=== PATIENT | male | born 1990 | race Two or more races ===

== ENCOUNTER 2025-04-11 10:56 | Inpatient (IN) | payer MEDICAID ==
[~2025-04-11] VITALS: Ht 162.6 cm; Wt 80.7 kg
[~2025-04-11 10:56] MED LIST: ACYC200C22 PO; PRED20TA2 PO
--- NOTE | 2025-04-11 12:39 | ED.PDOC ---
Back pain HPI HPI Comments 34 y/o M, presents to the ED for CC of back pain. Patient states, he has been experiencing bilateral lower back pain with associated left-leg pain sudden onset, x4days ago. Patient reports, regular heavy lifting d/t work; denies any trauma or lifting out of the ordinary. Patient relays, to have further associated symptoms of numbness and tingling. At this time patient c/o 10/10 back pain worsening with ambulation. Patient does endorses, taking x2 500mg Tylenol capsules with no relief of symptoms. No other symptoms or modifying factors are present at this time. Chief Complaint: Back Pain Time Seen by MD: 12:05 Primary Care Provider: [place] Reviewed Notes: Nurses Notes, Medications, Allergies Allergies: Coded Allergies: NO KNOWN ALLERGIES (Unverified , 03/27/23) Home Meds Active Scripts Prednisone (Prednisone) 20 Mg Tab, 60 MG PO DAILY for 10 Days, #30 MG Prov:BROOKLYN BELLA DO 03/27/23 Acyclovir (Acyclovir) 200 Mg Cap, 400 MG PO TID for 10 Days, #60 TAB Prov:BROOKLYN BELLA DO 03/27/23 Information Source: Patient Mode of Arrival: Ambulatory Timing: Days Duration: Since onset Location of Back pain: (B) Lumbar Severity: Moderate Prehospital treatment: None Onset: Spontaneous History of: None Associated signs and symptoms: None Past Medical History PAST MEDICAL HISTORY: Denies Surgical History: Denies all surgeries Family History Family History: Unknown Social History Smoker: Non-Smoker Alcohol: Denies ETOH Use Drugs: Denies Drug Use Lives In: Home Constitutional: denies: chills, diaphoresis, fatigue, fever, malaise, sweats, weakness, others EENTM: denies: blurred vision, double vision, ear bleeding, ear discharge, ear drainage, ear pain, ear ringing, eye pain, eye redness, hearing loss, mouth pain, mouth swelling, nasal discharge, nose bleeding, nose congestion, nose pain, photophobia, tearing, throat pain, throat swelling, voice changes, others Respiratory: denies: cough, hemoptysis, orthopnea, SOB at rest, shortness of breath, SOB with excertion, stridor, wheezing, others Cardiovascular: denies: chest pain, dizzy spells, diaphoresis, Dyspnea on exer tion, edema, irregular heart beat, left arm pain, lightheadedness, palpitations, PND, syncope, others Gastrointestinal: denies: abdomen distended, abdominal pain, blood streaked bowels, constipated, diarrhea, dysphagia, difficulty swallowing, hematemesis, melena, nausea, poor appetite, poor fluid intake, rectal bleeding, rectal pain, vomiting, others Genitourinary: denies: burning, dysuria, flank pain, frequency, hematuria, incontinence, penile discharge, penile sore, pain, testicle pain, testicle swelling, urgency, others Neurological: denies: dizziness, fainting, headache, left sided numbness, left sided weakness, numbness, paresthesia, pre-existing deficit, right sided numbness, right sided weakness, seizure, speech problems, tingling, tremors, weakness, others Musculoskeletal: reports: back pain; denies: gout, joint pain, joint swelling, muscle pain, muscle stiffness, neck pain, others Integumetry: denies: bruises, change in color, change in hair/nails, dryness, laceration, lesions, lumps, rash, wounds, others Allergic/Immunocompromised: denies: Difficulty Healing, Frequent Infections, Hives, Itching, others Hematologic/Lymphatic: denies: anemia, blood clots, easy bleeding, easy bruising, swollen glands, others Endocrine: denies: excessive hunger, excessive sweating, excessive thirst, excessive urination, flushing, intolerance to cold, intolerance to heat, unexplained weight gain, unexplained weight loss, others Psychiatric: denies: anxiety, bipolar disorder, depression, hopeless, panic disorder, schizophrenia, sleepless, suicidal, others All Other Systems: Reviewed and Negative Physical Exam General Appearance: No Apparent Distress, Normal HEENT: Normal ENT Inspection, Pharynx Normal Neck: Full Range of Motion, Non-Tender, Normal, Normal Inspection Respiratory: Chest Non-Tender, Lungs Clear, No Accessory Muscle Use, No Respiratory Distress, Normal Breath Sounds Cardiovascular: No Edema, No Murmur, No Gallop, Normal Peripheral Pulses, Regular Rate/Rhythm Breast Exam: Deferred Gastrointestinal: No Organomegaly, Non Tender, No Pulsatile Mass, Normal Bowel Sounds, Soft Genitalia: Deferred Pelvic: Deferred Rectal: Deferred Extremities: No calf tenderness, Normal capillary refill, Normal inspection, Normal range of motion, Non-tender, No pedal edema Musculoskeletal : Location: Left Extremity Location: Back Apperance: Tenderness Neurologic: Alert, health diagnostics teacher II-XII nml as Tested, No Motor Deficits, Normal Affect, Normal Mood, No Sensory Deficits Cerebellar Function: Normal Reflexes: Normal Skin: Dry, Normal Color, Warm Lymphatic: No Adenopathy Was a procedure done? Was a procedure done?: No Back Pain Differential Dx Differential Diagnosis: Fracture, Musculoskeletal Pain X-Ray, Labs, Meds, VS Vital Signs Date Time Temp Pulse Resp B/P (MAP) Pulse Ox O2 Delivery O2 Flow Rate FiO2 04/11/25 15:17 98.4 04/11/25 13:45 74 18 98 Room Air 04/11/25 13:45 97.6 74 18 126/78 (94) 98 97.6 04/11/25 11:02 97.1 60 16 132/72 98 97.1 Current Medications Medications (Trade) Dose Ordered Sig/Dominik Route Start Time Stop Time Status Last Admin Acetaminophen (Tylenol Tablet) 650 mg ONCE ONCE PO 04/11/25 12:30 04/11/25 12:31 DC 04/11/25 13:38 Ketorolac Tromethamine (Toradol Injection) 15 mg ONCE ONCE IM 04/11/25 12:30 04/11/25 12:31 DC 04/11/25 13:37 Cyclobenzaprine HCl (Flexeril Tablet) 10 mg ONCE ONCE PO 04/11/25 12:30 04/11/25 12:31 DC 04/11/25 13:37 [place] [address] Ph: [phone] DIAGNOSTIC IMAGING Diagnostic Imaging Report : [id number] Signed PATIENT: DELFINA GÓMEZ ACCT: [id number] UNIT: [id number] : 1990 LOC: ER ROOM / BED: / AGE / SEX: 34 / M ADM STATUS: REG ER SERVICE 16 ORDERING PHYSICIAN: EM GARCIA MD PROCEDURE(s): LUMB2 - LUMBAR SPINE 3 VIEW REASON: lower back pain ORDER NUMBER(s): [id number], ACCESSION NUMBER(s): [id number] CLINICAL INDICATION: lower back pain TECHNIQUE: 3 radiographic views of the lumbar spine were obtained. COMPARISON: None FINDINGS/IMPRESSION: No compressed vertebra. No spondylolisthesis. ATED BY: LAUREN LARA Jr., DO DICTATED DATE/TIME: 04/11/251257 SIGNED BY: LAUREN LARA Jr., SIGNED DATE/TIME: 04/11/251257 CC: Time of 1ST Reevaluation: 12:35 Reevaluation 1ST: Unchanged Patient Education/Counseling: Diagnosis, Treatment Family Education/Counseling: Diagnosis, Treatment SEPSIS Sepsis Screen Date sepsis recognized/suspect: Apr 11, 2025 Time Sepsis recognized/suspect: 1106 Recent Procedure: No On Antibiotic Therapy: No Respiratory Rate >20: No Heart Rate >90: No Temp<36 C (96.8 F) or >38.3 C: No SBP <90 or MAP <65 mmHG: No New Acute Mental Status Change: No Is the patient on CPAP, BIPAP,: No Physician Orders Lumbar Spine 3 View (04/11/25 12:17) Vital Signs Date Time Temp Pulse Resp B/P (MAP) Pulse Ox O2 Delivery O2 Flow Rate FiO2 04/11/25 15:17 98.4 04/11/25 13:45 74 18 98 Room Air 04/11/25 13:45 97.6 74 18 126/78 (94) 98 97.6 04/11/25 11:02 97.1 60 16 132/72 98 97.1 Medications Medications Dose Ordered Sig/Dominik Route Start Time Stop Time Status Last Admin Dose Admin Acetaminophen 650 mg ONCE ONCE PO 04/11/25 12:30 04/11/25 12:31 DC 04/11/25 13:38 Cyclobenzaprine HCl 10 mg ONCE ONCE PO 04/11/25 12:30 04/11/25 12:31 DC 04/11/25 13:37 Ketorolac Tromethamine 15 mg ONCE ONCE IM 04/11/25 12:30 04/11/25 12:31 DC 04/11/25 13:37 Departure 1 Departure Time of Disposition: 17:46 (Patient with lower back pain that radiates down his legs with the associated numbness and tingling in both legs. Patient went difficulty ambulating. We will admit patient for advanced imaging and expert consultation) Impression: Primary Impression: Lower back pain Additional Impression: Lower extremity weakness Disposition: 09 ADMITTED INPATIENT Admit to: Med Surg Condition: Guarded Critical Care Note Critical Care Time?: No Stability Stability form required: No Heart Score Heart Score: Heart Score Response (Comments) Value History N/A 0 EKG N/A 0 Age N/A 0 Risk Factors N/A 0 Troponin N/A 0 Total 0 I personally scribed for EM GARCIA MD ([email or web address]) on 04/11/25 at 12:39. Electronically submitted by Rajani Leong ([email or web address]). I personally scribed for EM GARCIA MD ([email or web address]) on 04/11/25 at 13:22. Electronically submitted by Rajani Leong ([email or web address]). EM GARCIA MD Apr 11, 2025 12:39
--- NOTE | 2025-04-11 13:00 | DVH ---
CLINICAL INDICATION: lower back pain TECHNIQUE: 3 radiographic views of the lumbar spine were obtained. COMPARISON: None FINDINGS/IMPRESSION: No compressed vertebra. No spondylolisthesis.
[2025-04-11] MEDS: CYCLOBENZAPRINE HCL 10 MG TAB PO ONE (13:37)
[2025-04-11] MEDS: KETOROLAC TROMETH 30 MG/ML 1ML VIAL IM ONE (13:37)
[2025-04-11] MEDS: ACETAMINOPHEN 325 MG TAB PO ONE (13:38)
[2025-04-11] MEDS ORDERED: MORPHINE SULFATE INJ 2 MG/ml SYRG IV PRN (22:30)
--- NOTE | 2025-04-11 22:44 | DVHHPRES ---
History of Present Illness Resident Creating Document: RAMSES BRAND RESIDENT History of Present Illness The patient is a 33-year-old male with past medical history of [place] palsy, came to the hospital with chief complaints of lower back pain radiating to bilateral hips but more on the left side which is radiating to the left leg since 4 days and today got worse. Patient reports the pain is 10/10 in intensity, constant, shock-like increased with walking and sitting up straight , standing , and defecation. Due to severe pain, the patient is not able to walk. 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 Patient also states 2 days ago he had flu-like symptoms. currently denies fever, chills, constipation, urinary incontinence, dysuria, hematuria, stool incontinence. Past surgical history: Appendectomy Family history: Reviewed, noncontributory Personal history: Smokes 1 cigarette per week, drinks occasionally, denies any drug use. Lives with: Family PCP: Does not have PCP Medications: Denies any home medications Allergies: Denies any allergies Patient seen and examined at the bedside. Patient is still complaining of severe low-back pain. Review of Systems Constitutional: No: Fever, Chills, Sweats, Weakness, Malaise, Other Eyes: No: Pain, Vision change, Conjunctivae inflammation, Eyelid inflammation, Other, Redness ENT: No: Ear pain, Ear discharge, Nose pain, Nose discharge, Nose congestion, Mouth pain, Mouth swelling, Throat pain, Throat swelling, Other Respiratory: No: Cough, Dry, Shortness of breath, SOB with excertion, Wheezing, Hemoptysis, Pleuritic Pain, Sputum, Wheezing, Other Cardiovascular: No: Chest Pain, Palpitations, Orthopnea, Paroxysmal Noc. Dyspnea, Edema, Lt Headedness, Other Gastrointestinal: No: Nausea, Vomiting, Abdominal Pain, Diarrhea, Constipation, Melena, Hematochezia, Other Genitourinary: No Dysuria, No Frequency, No Incontinence, No Hematuria, No Retention, No Other Musculoskeletal: back pain, leg pain; No: other, neck pain, shoulder pain, arm pain, hand pain, foot pain Skin: No: Rash, Lesions, Jaundice, Bruising, Other Neurological: No: Weakness, Numbness, Incoordination, Change in speech, Confusion, Seizures, Other Allergies: Coded Allergies: NO KNOWN ALLERGIES (Unverified , 03/27/23) Exam Vital Signs Vital Signs Date Time Temp Pulse Resp B/P (MAP) Pulse Ox O2 Delivery O2 Flow Rate FiO2 04/11/25 20:25 97.7 53 16 135/76 (95) 97 97.7 04/11/25 13:45 Room Air Exam General: Patient alert and oriented in person, place and time. Patient following commands. severe distress HEENT: Normocephalic, atraumatic, moist mucous membranes Respiratory/pulmonary: Clear lungs bilaterally, vesicular murmurs present in almost all lung hernández, no associated crackles or wheezes. Cardiovascular: Normal heart sounds S1 and S2 with no associated murmurs Abdomen: Abdomen nondistended, there is no pain to palpation in any of the abdominal quadrants, no palpable masses. Extremities: Severe lower back tenderness upon palpation, radiating to Left hip and left leg Peripheral Pulses: 3+ Radial (R). 3+ Radial (L). 3+ Dorsalis pedis (R). 3+ Dorsalis pedis(L) Skin: No rashes or pruritus, there is no sacral edema present at this time. Neurological: Intact cranial nerves with no focal neurologic deficits SEPSIS Sepsis Screen Date sepsis recognized/suspect: Apr 11, 2025 Time Sepsis recognized/suspect: 6 Recent Procedure: No On Antibiotic Therapy: No Respiratory Rate >20: No Heart Rate >90: No Temp<36 C (96.8 F) or >38.3 C: No SBP <90 or MAP <65 mmHG: No New Acute Mental Status Change: No Is the patient on CPAP, BIPAP,: No Physician Orders Admit (04/11/25 22:20) Code Status (04/11/25 22:20) Complete Blood Count (04/12/25 04:00) Comprehensive Metabolic Panel (04/12/25 04:00) Pt Request For Service (04/11/25 22:20) Stat Ekg For Chest Pain (04/11/25 22:20) Notify Of Changes From Base (04/11/25 22:20) Emergency Dysrhythmia Protocol (04/11/25 22:20) Rhythm Strips Once Every Shift (04/11/25 22:20) Complete Blood Count (04/11/25 22:20) Comprehensive Metabolic Panel (04/11/25 22:20) Urinalysis (04/11/25 22:20) Drug Screen (04/11/25 22:20) Acetaminophen Tablet (Tylenol Tablet) (04/12/25 00:00) Ketorolac Injection (Toradol Injection) (04/12/25 00:00) Morphine Sulfate Injection (04/11/25 22:30) Vital Signs Date Time Temp Pulse Resp B/P (MAP) Pulse Ox O2 Delivery O2 Flow Rate FiO2 04/11/25 20:25 97.7 53 16 135/76 (95) 97 97.7 04/11/25 15:17 98.4 Medications Medications Dose Ordered Sig/Dominik Route Start Time Stop Time Status Last Admin Dose Admin Acetaminophen 650 mg ONCE ONCE PO 04/11/25 12:30 04/11/25 12:31 DC 04/11/25 13:38 650 MG Cyclobenzaprine HCl 10 mg ONCE ONCE PO 04/11/25 12:30 04/11/25 12:31 DC 04/11/25 13:37 10 MG Ketorolac Tromethamine 15 mg ONCE ONCE IM 04/11/25 12:30 04/11/25 12:31 DC 04/11/25 13:37 15 MG Assessment/Plan Assessment/Plan Intractable lower back pain Possible traumatic back injury - patient unable to walk due to severe pain - lumbar Spine x-ray: No compressed vertebra. No spondylolisthesis. - IV pain management Obesity Regular diet PPI prophylaxis: Not indicated DVT prophylaxis: ambulatory Goals of care addressed with the patient for more than 31 minutes: Full code status Case discussed with , patient and nurse Plan discussed with: Patient My Orders Orders - RAMSES BRAND RESIDENT Procedure Category Date Status Time Admit ADMIT 04/11/25 Transmitted 22:20 Code Status CODE 04/11/25 Transmitted 22:20 Complete Blood Count LAB 04/12/25 Verified 04:00 Comprehensive LAB 04/12/25 Verified Metabolic Panel 04:00 Pt Request For Service PT 04/11/25 Logged 22:20 Stat Ekg For Chest MISAEL 04/11/25 In Process Pain 22:20 Notify Of Changes MISAEL 04/11/25 In Process From Base 22:20 Emergency Dysrhythmia MISAEL 04/11/25 In Process Protocol 22:20 Rhythm Strips Once MISAEL 04/11/25 In Process Every Shift 22:20 Complete Blood Count LAB 04/11/25 Logged 22:20 Comprehensive LAB 04/11/25 Logged Metabolic Panel 22:20 Urinalysis LAB 04/11/25 Logged 22:20 Drug Screen LAB 04/11/25 Logged 22:20 Acetaminophen Tablet PHA 04/12/25 In Process (Tylenol Tablet) 00:00 Ketorolac Injection PHA 04/12/25 In Process (Toradol Injection) 00:00 Morphine Sulfate PHA 04/11/25 In Process Injection 22:30 Visit Coding STANDARD RES Billing Provider: BRITTANY CERVANTES MD Date of Service if different f: Apr 11, 2025 Common Visit Codes: 69619-DFGIABI INP/OBS CARE (HIGH) Secondary Visit Codes: 11136-GXIIGXBZ CARE PLAN 30 MINUTES RAMSES BRAND RESIDENT Apr 11, 2025 22:44
[2025-04-11 23:12] LABS: Hematocrit 47.7 % (41.0-53.0); Hemoglobin 16.0 g/dL (13.5-17.5); Mean Corpuscular Hemoglobin 28.3 pg (28.0-32.0); Mean Corpuscular Volume 84.3 fL (80.0-100.0); Nucleated Red Blood Cells % 0.1 %
[2025-04-11] MEDS: KETOROLAC TROMETH 30 MG/ML 1ML VIAL IV SCH (23:26)
[2025-04-11] MEDS: ACETAMINOPHEN 325 MG TAB PO SCH (23:27)
[2025-04-11 23:29] LABS: Alanine Aminotransferase 31 U/L (7-40); Albumin 4.7 g/dL (3.2-4.8); Alkaline Phosphatase 90 U/L (46-116); Anion Gap 9 (5-15); BUN/Creatinine Ratio 27.9 (10.0-20.0); Calcium 9.1 mg/dL (8.7-10.4); Carbon Dioxide 26 mmol/L (20-31); Chloride 106 mmol/L (98-107); Glucose 85 mg/dL (74-106); Potassium 3.7 mmol/L (3.5-5.1); Sodium 141 mmol/L (136-145); Total Protein 7.0 g/dL (5.7-8.2)
[2025-04-11 23:30] LABS: Bilirubin, Total 0.4 mg/dL (0.2-1.0)
[2025-04-11 23:34] LABS: Blood Urea Nitrogen 24 mg/dL (9-23)
[2025-04-11 23:52] VITALS: BP 129/71; PULSE 47; RESP 17; TEMP 98.1; O2SAT 100
[2025-04-12 02:15] LABS: Urine Protein, UAD TRACE (Negative)
[2025-04-12 02:18] LABS: Amphetamine Screen, Urine Neg (NEGATIVE); Barbiturate Scree,Urine Neg (NEGATIVE); Benzodiazephine Screen, Urine Neg (NEGATIVE); Cannabinoid Screen, Urine Neg (NEGATIVE); Cocaine Screen, Urine Neg (NEGATIVE); Opiate Scree,Urine Neg (NEGATIVE); Phencyclidine Screen, Urine Neg (NEGATIVE)
[2025-04-12 04:00] VITALS: BP 129/71; PULSE 50; RESP 17; O2SAT 96
[2025-04-12 05:56] LABS: Hematocrit 48.4 % (41.0-53.0); Hemoglobin 16.4 g/dL (13.5-17.5); Mean Corpuscular Hemoglobin 28.5 pg (28.0-32.0); Mean Corpuscular Volume 83.8 fL (80.0-100.0); Nucleated Red Blood Cells % 0.0 %
[2025-04-12 06:00] VITALS: BP 112/75; PULSE 51; RESP 18; TEMP 97.7; O2SAT 100
[2025-04-12 06:22] LABS: Alanine Aminotransferase 29 U/L (7-40); Albumin 4.4 g/dL (3.2-4.8); Alkaline Phosphatase 89 U/L (46-116); Anion Gap 9 (5-15); BUN/Creatinine Ratio 23.9 (10.0-20.0); Blood Urea Nitrogen 21 mg/dL (9-23); Calcium 9.2 mg/dL (8.7-10.4); Carbon Dioxide 26 mmol/L (20-31); Chloride 106 mmol/L (98-107); Glucose 100 mg/dL (74-106); Potassium 4.7 mmol/L (3.5-5.1); Sodium 141 mmol/L (136-145); Total Protein 6.9 g/dL (5.7-8.2)
[2025-04-12 06:23] LABS: Bilirubin, Total 0.4 mg/dL (0.2-1.0)
[2025-04-12 09:00] VITALS: BP 123/70; PULSE 52; RESP 17; TEMP 97.9; O2SAT 97
[2025-04-12] MEDS: PANTOPRAZOLE 40 MG TAB PO ONE (10:01)
[2025-04-12] MEDS: BACLOFEN 10 MG TAB PO SCH (10:01)
[2025-04-12 12:55] LABS: COVID19 ANTIGEN SOFIA FIA NEGATIVE (NEGATIVE)
[2025-04-12 13:00] VITALS: BP 124/79; PULSE 54; TEMP 97.8; O2SAT 99
[2025-04-12] MEDS ORDERED: PANT40T PO (13:10)
[2025-04-12] MEDS ORDERED: BACL10TA PO (13:10)
[2025-04-12] MEDS ORDERED: IBUP-1453 PO (13:10)
[2025-04-12] MEDS ORDERED: PANTOPRAZOLE 40 MG TAB PO ONE (13:15)
[2025-04-12] MEDS ORDERED: ERGO1CAP23 PO (14:02)
[2025-04-12] MEDS: methylPREDNISolone SOD SUCC 40 MG/ML VL IV ONE (14:15)
[2025-04-12] MEDS: ERGOCALCIFEROL 50,000 UNIT(1.25MG) CAP PO SCH (14:15)
[2025-04-12] MEDS: CYANOCOBALAMIN (B-12) 1000 MCG/1 ML VIAL IM ONE (14:31)
--- NOTE | 2025-04-12 14:41 | DVHDSRES ---
Discharge Summary Date of Admission Resident Creating Document: MELODIE KNOX RESIDENT Apr 11, 2025 at 22:20 Date of Discharge: Apr 12, 2025 Admitting Diagnosis Intractable low back pain Labs/Diagnostic Data: Laboratory Results Test 04/12/25 10:41 04/12/25 05:16 04/11/25 23:32 Influenza Type A Antigen Negative (Negative) Influenza Type B Antigen Negative (Negative) SARS-CoV-2 Antigen (Rapid) Negative (NEGATIVE) White Blood Count 6.0 10^3/uL (4.4-10.8) Red Blood Count 5.77 10^6/uL (4.5-5.90) Hemoglobin 16.4 g/dL (13.5-17.5) Hematocrit 48.4 % (41.0-53.0) Mean Corpuscular Volume 83.8 fL (80.0-100.0) Mean Corpuscular Hemoglobin 28.5 pg (28.0-32.0) Mean Corpuscular Hemoglobin Concent 33.9 g/dL (32.0-36.0) Red Cell Distribution Width 13.6 % (11.8-14.3) Platelet Count 209 10^3/uL (140-450) Mean Platelet Volume 8.6 fL (6.9-10.8) Neutrophils (%) (Auto) 53.7 % (37.0-80.0) Lymphocytes (%) (Auto) 36.6 % (10.0-50.0) Monocytes (%) (Auto) 6.2 % (0.0-12.0) Eosinophils (%) (Auto) 3.2 % (0.0-7.0) Basophils (%) (Auto) 0.3 % (0.0-2.0) Neutrophils # (Auto) 3.2 10 ^3/uL (1.6-8.6) Lymphocytes # (Auto) 2.2 10 ^3/uL (0.4-5.4) Monocytes # (Auto) 0.4 10 ^3/uL (0-1.3) Eosinophils # (Auto) 0.2 10 ^3/uL (0-0.8) Basophils # (Auto) 0 10 ^3/uL (0-0.2) Nucleated Red Blood Cells 0.0 % Erythrocyte Sedimentation Rate 1 mm/hr (0-20) Sodium Level 141 mmol/L (136-145) Potassium Level 4.7 mmol/L (3.5-5.1) Chloride Level 106 mmol/L (98-107) Carbon Dioxide Level 26 mmol/L (20-31) Anion Gap 9 (5-15) Blood Urea Nitrogen 21 mg/dL (9-23) Creatinine 0.88 mg/dL (0.700-1.30) Glomerular Filtration Rate Calc 116 mL/min (>90) BUN/Creatinine Ratio 23.9 (10.0-20.0) Serum Glucose 100 mg/dL (74-106) Hemoglobin A1c 5.4 % A1C (<5.7) Calcium Level 9.2 mg/dL (8.7-10.4) Magnesium Level 2.0 mg/dL (1.6-2.6) Total Bilirubin 0.4 mg/dL (0.2-1.0) Aspartate Amino Transferase (AST) 20 U/L (13-40) Alanine Aminotransferase (ALT) 29 U/L (7-40) Alkaline Phosphatase 89 U/L (46-116) C-Reactive Protein High Sensitivity 0.03 mg/dL (<1.0) Total Protein 6.9 g/dL (5.7-8.2) Albumin 4.4 g/dL (3.2-4.8) Vitamin B12 Level 245 pg/mL (211-911) Vitamin D 25-Hydroxy 28.4 ng/mL (30.0-100) Folic Acid 19.39 ng/mL (>5.38) Thyroid Stimulating Hormone (TSH) 1.88 uIU/mL (0.55-4.78) Urine Color Yellow (Yellow) Urine Clarity Clear (Clear) Urine pH 5.5 (5.0-9.0) Urine Specific [place] 1.044 (1.001-1.035) Urine Protein Trace (Negative) Urine Ketones Trace (Negative) Urine Blood Negative /uL (Negative) Urine Nitrite Negative (Negative) Urine Bilirubin Negative (Negative) Urine Urobilinogen Normal mg/dL (Negative) Urine Leukocyte Esterase Negative /uL (Negative) Urine RBC 2 /hpf (0 - 3) Urine Microscopic WBC < 1 /HPF (0-3) Urine Squamous Epithelial Cells None seen /hpf (<5) Urine Calcium Oxalate Crystals Mod (None Seen) Urine Bacteria None seen /hpf (None Seen) Urine Mucus Few (None Seen) Urine Glucose Normal mg/dL (Normal) Urine Opiates Screen Neg (NEGATIVE) Urine Fentanyl Screen Neg (NEGATIVE) Urine Barbiturates Screen Neg (NEGATIVE) Urine Phencyclidine Screen Neg (NEGATIVE) Urine Amphetamines Screen Neg (NEGATIVE) Urine Benzodiazepines Screen Neg (NEGATIVE) Urine Cocaine Screen Neg (NEGATIVE) Urine Cannabinoids Screen Neg (NEGATIVE) Other Laboratory Tests 04/12/25 05:16 Brief Hx & Hospital Course: The patient is a 33-year-old male with past medical history of [place] palsy, came to the hospital with chief complaints of lower back pain radiating to bilateral hips but more on the left side which is radiating to the left leg since 4 days and today got worse. Patient reports the pain is 10/10 in intensity, constant, shock-like increased with walking and sitting up straight , standing , and defecation. Due to severe pain, the patient is not able to walk. 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 Patient also states 2 days ago he had flu-like symptoms. currently denies fever, chills, constipation, urinary incontinence, dysuria, hematuria, stool incontinence. Hospital [id number] lumbar spine was negative for vertebral fracture or spondylolisthesis. Patient was treated conservatively with pain medication and muscle relaxants. Patient's symptoms improved. Patient was seen by Physical therapy. Patient was discharged with ibuprofen, baclofen and pantoprazole. Patient was advised to follow up at [facility] clinic/PCP. Patient was hemodynamically stable on discharge. All questions answered. General: Patient alert and oriented in person, place and time. Patient following commands. severe distress HEENT: Normocephalic, atraumatic, moist mucous membranes Respiratory/pulmonary: Clear lungs bilaterally, vesicular murmurs present in almost all lung hernández, no associated crackles or wheezes. Cardiovascular: Normal heart sounds S1 and S2 with no associated murmurs Abdomen: Abdomen nondistended, there is no pain to palpation in any of the abdominal quadrants, no palpable masses. Extremities: No leg edema Peripheral Pulses: 3+ Radial (R). 3+ Radial (L). 3+ Dorsalis pedis (R). 3+ Dorsalis pedis(L) Skin: No rashes or pruritus, there is no sacral edema present at this time. Neurological: Intact cranial nerves with no focal neurologic deficits Assessment Intractable low back pain likely due to sciatica Back pain possibly due to muscle sprain Ruled out acute fracture/spondylolisthesis Asymptomatic sinus bradycardia Plan Ibuprofen PRN as prescribed Baclofen as prescribed Pantoprazole as prescribed Patient was counseled about weight lifting mechanism Follow up at [place] clinic/PCP Operations or Procedures [address] [address] Ph: [phone] DIAGNOSTIC IMAGING Diagnostic Imaging Report : [id number] Signed PATIENT: DELFINA GÓMEZ ACCT: [id number] UNIT: [id number] : 1990 LOC: ER ROOM / BED: / AGE / SEX: 34 / M ADM STATUS: REG ER SERVICE 16 ORDERING PHYSICIAN: EM GARCIA MD PROCEDURE(s): LUMB2 - LUMBAR SPINE 3 VIEW REASON: lower back pain ORDER NUMBER(s): [id number], ACCESSION NUMBER(s): [id number] CLINICAL INDICATION: lower back pain TECHNIQUE: 3 radiographic views of the lumbar spine were obtained. COMPARISON: None FINDINGS/IMPRESSION: No compressed vertebra. No spondylolisthesis. ATED BY: LAUREN LARA Jr., DO DICTATED DATE/TIME: 04/11/251257 SIGNED BY: LAUREN LARA Jr., DO SIGNED DATE/TIME: 04/11/251257 CC: Condition at Discharge: Stable Final Diagnosis/Problems List Intractable low back pain likely due to sciatica Back pain possibly due to muscle sprain Ruled out acute fracture/spondylolisthesis Asymptomatic sinus bradycardia Vitamin-D deficiency Discharge Disposition: Home Discharge Instruct/Medications Diet: Regular Activity: See Comment Activity comment: caution on how to do weight lifting Follow Up/Referral: [facility] Medications: as above Scheduled Acyclovir (Acyclovir), 400 MG PO TID Baclofen (Baclofen), 10 MG PO TID Ergocalciferol (Vitamin D 31669 Unit), 50,000 UNIT PO QWEEKLY Ibuprofen (Ibuprofen), 1 TAB PO Q6HPRN Pantoprazole Sodium Sesquihydr (Pantoprazole Sodium), 40 MG PO DAILY Prednisone (Prednisone), 60 MG PO DAILY Discharge Statement: "Patient was advised to return to the ER or call 911 if any headaches, dizziness, shortness of breath, chest pain, abdominal pain, bleeding, fevers, or worsening of medical condition. Patient was counseled about treatment plan, medications, possible side effects, patientverbalized understanding. All questions were answered to the best of my ability. This discharge took greater then 30 minutes in planning, reviewing documentation, counseling the patient, and discussing with other team members." ASSESSMENT ASSESSMENT Assessment Low back pain possibly due to Sciatica Visit Coding STANDARD RES Billing Provider: DAMI COX MD Date of Service if different f: Apr 12, 2025 Common Visit Codes: 82775-UXD/OBS DISCH DAY >30min MELODIE KNOX RESIDENT Apr 12, 2025 14:41
[2025-04-13] MEDS ORDERED: PANTOPRAZOLE 40 MG TAB PO SCH (06:00)
== END 2025-04-12 14:30 | disposition home or self-care (01) | DRG 347 ==
LOC: ER 10:56 → OVERFLOW 22:20 → UNDODEPER 04-12 04:02
PROVIDERS: ADMIT Student in an Organized Health Care Education/Training Program; ATTEND Student in an Organized Health Care Education/Training Program
DX: M54.32 Sciatica, left side (principal); E66.9 Obesity, unspecified; S39.012A Strain of muscle, fascia and tendon of lower back, initial encounter; F17.210 Nicotine dependence, cigarettes, uncomplicated; Z20.822 Contact with and (suspected) exposure to COVID-19; M54.31 Sciatica, right side; Z79.899 Other long term (current) drug therapy; Z68.30 Body mass index [BMI] 30.0-30.9, adult; X58.XXXA Exposure to other specified factors, initial encounter; Y93.89 Activity, other specified; Y92.89 Other specified places as the place of occurrence of the external cause; Y99.8 Other external cause status
CPT/HCPCS: 36415; 72100; 80053; 80307; 81001; 82306; 82607; 82746; 83036; 83735; 84443; 85025; 85652; 86141; 87426; 87804; 96372; 97163; G0378; J1885